=== PATIENT | male | born 1985 | race Caucasian/White ===

== ENCOUNTER 2016-08-28 15:51 | Emergency (ER) | payer OTHER ==
--- NOTE | 2016-08-28 16:15 | ED NURSING NOTES ---
Clinical Report - Nurses [facility] [place] [address] 08/28/2016 15:53 Patient: YULIANA DEL RIO TRIAGE Triage time 16:00. Acuity: LEVEL 4. Chief Complaint: LEFT EAR PAIN and (left ear stinging). Alert. --16:08 Shaneka Hopkins R.N. 16:00 08/28/16. BP: 126/91. HR: 62. RR: 18. O2 saturation: 100%. Temp: 97.4 F. Pain level now: 12/30. --16:08 Shaneka Hopkins R.N. Weight: 74.8 kg measured. Height/Length: 65 inches Per Patient. BMI: 27.5. --16:03 Shaneka Hopkins R.N. Medications None. --16:02 Shaneka Hopkins R.N. Allergies No Known Drug Allergy. --16:02 Shaneka Hopkins R.N. History Arrived by private vehicle. Historian: patient. Accompanied by family. Primary physician (none, has been to [facility], has appointment Tuesday). Onset. (2 days ago). PAST MEDICAL HX: Ear infection. Immunizations: up-to-date. SOCIAL HX: Never smoker. Occasional alcohol use. No drug use. FALL RISK ASSESSMENT: Fall risk assessment completed. No fall risk identified. --16:08 Shaneka Hopkins R.N. PROBLEMS: no known problems. ADDITIONAL SURGERIES: no known surgeries. Interventions ID band on patient. To room. --16:08 Shaneka Hopkins R.N. PHYSICAL ASSESSMENT 16:08/28/16. GENERAL / NEURO / PSYCH: Alert. ( Pt talks slowly, slightly slurred, states his ear hurts after he put a q tip into it). --16:09 Shaneka Hopkins R.N. GENERAL / NEURO / PSYCH: Mood/affect abnormal (flat). --16:15 Hopkins, Shaneka, R.N. NURSING PROGRESS NOTES 16:09 08/28/16. Patient identifiers checked. Call light placed in reach. Bed placed in lowest position. Patient ready for evaluation- chart flagged. --16:09 Shaneka Hopkins R.N. DISPOSITION / DISCHARGE Departure time: 1617. Learning barriers note: Pt seems mildly delayed, parents unaware. Discharge instructions provided and reviewed with the patient and parent. Reviewed medication(s) information. Prescription(s) given to the parent. Reviewed referral to family practice for followup. Patient and parent verbalized understanding. Written instructions provided. The patient was discharged home. He left the Emergency Department ambulatory and via private vehicle. Family member driving. --16:19 Shaneka Hopkins R.N. Locked/Released at 08/28/2016 16:21 by Shaneka Hopkins R.N.
--- NOTE | 2016-08-28 16:15 | ED NURSING NOTES ---
Clinical Report - Nurses [facility] [place] [address] 08/28/2016 15:53 Patient: YULIANA DEL RIO TRIAGE Triage time 16:00. Acuity: LEVEL 4. Chief Complaint: LEFT EAR PAIN and (left ear stinging). Alert. --16:08 Shaneka Hopkins R.N. 16:00 08/28/16. BP: 126/91. HR: 62. RR: 18. O2 saturation: 100%. Temp: 97.4 F. Pain level now: 12/30. --16:08 Shaneka Hopkins R.N. Weight: 74.8 kg measured. Height/Length: 65 inches Per Patient. BMI: 27.5. --16:03 Shaneka Hopkins R.N. Medications None. --16:02 Shaneka Hopkins R.N. Allergies No Known Drug Allergy. --16:02 Shaneka Hopkins R.N. History Arrived by private vehicle. Historian: patient. Accompanied by family. Primary physician (none, has been to [facility], has appointment Tuesday). Onset. (2 days ago). PAST MEDICAL HX: Ear infection. Immunizations: up-to-date. SOCIAL HX: Never smoker. Occasional alcohol use. No drug use. FALL RISK ASSESSMENT: Fall risk assessment completed. No fall risk identified. --16:08 Shaneka Hopkins R.N. PROBLEMS: no known problems. ADDITIONAL SURGERIES: no known surgeries. Interventions ID band on patient. To room. --16:08 Shaneka Hopkins R.N. PHYSICAL ASSESSMENT 16:08/28/16. GENERAL / NEURO / PSYCH: Alert. ( Pt talks slowly, slightly slurred, states his ear hurts after he put a q tip into it). --16:09 Shaneka Hopkins R.N. GENERAL / NEURO / PSYCH: Mood/affect abnormal (flat). --16:15 Hopkins, Shaneka, R.N. NURSING PROGRESS NOTES 16:09 08/28/16. Patient identifiers checked. Call light placed in reach. Bed placed in lowest position. Patient ready for evaluation- chart flagged. --16:09 Shaneka Hopkins R.N. DISPOSITION / DISCHARGE Departure time: 1617. Learning barriers note: Pt seems mildly delayed, parents unaware. Discharge instructions provided and reviewed with the patient and parent. Reviewed medication(s) information. Prescription(s) given to the parent. Reviewed referral to family practice for followup. Patient and parent verbalized understanding. Written instructions provided. The patient was discharged home. He left the Emergency Department ambulatory and via private vehicle. Family member driving. --16:19 Shaneka Hopkins R.N. Locked/Released at 08/28/2016 16:21 by Shaneka Hopkins R.N.
--- NOTE | 2016-08-28 16:15 | ED CLINICAL REPORT ---
Clinical Report - Physicians/Mid Levels [facility] [address] [place] [address] 08/28/2016 15:53 Patient: YULIANA DEL RIO Time Seen: 16:19 Aug 28 2016. Arrived- By private vehicle. Historian- patient. HISTORY OF PRESENT ILLNESS Chief Complaint: EARACHE. This started 2 days [employer] and is still present. Location- left ear. The pain is described as mild. The patient has had ear pain. No nasal discharge or congestion, sinus pressure, complaint of foreign body in the ear or ear trauma. No recent barotrauma, sore throat, toothache or jaw pain. (Has been placing a Q-tip into the ear. Denies any bleeding or drainage. Denies any increase in a headache. History recurring ear infections as a child.). REVIEW OF SYSTEMS No fever, cough, difficulty breathing, headache or diarrhea. No abdominal pain. All systems otherwise negative, except as recorded above. PAST HISTORY family report he has finished high school, and is progressing. Problems: Ear Infection. Additional Surgeries: no known surgeries. Medications: None. Allergies: No Known Drug Allergy. SOCIAL HISTORY Never smoker. Alcohol use; consumes beer occasionally. No drug use. ADDITIONAL NOTES The nursing notes have been reviewed. PHYSICAL EXAM Vital Signs: 08/28/2016 16:00 BP: 126/91. HR: 62. RR: 18. O2 saturation: 100%. Temp: 97.4 F. Pain level now: 8/10. Appearance: Alert. (patient is slow to respond, flat affect). Ear (left): There is erythema and bulging of the tympanic membrane and loss of tympanic membrane landmarks. No pain with movement of the auricle, lymphadenopathy, erythema of the external canal, swelling of the external canal or material in the external canal. No perforation of the tympanic membrane. Insufflation normal. Normal mastoid. Throat: Pharynx normal. No mouth ulcerations or tonsillar exudate. Nose: Nose normal. No tenderness to palpation/percussion over the sinuses. Ear (right): Right ear normal. Right tympanic membrane normal. Neck: Normal inspection. No meningeal signs or lymphadenopathy. CVS: Normal heart rate and rhythm. Heart sounds normal. Normal rhythm. Respiratory: No respiratory distress. Breath sounds normal. Back: Normal inspection. Skin: Skin warm. Normal skin color. Neuro: Oriented X 3. PROGRESS AND PROCEDURES Course of Care: Patient with uvula midline, no TM erythema on the rise, signs of TM erythema on the left with out any signs of canal swelling. No mastoid tenderness. Patient very stable. Lungs clear. Patient may be mildly developmentally delayed, answering questions appropriately, however is slow and such in nature, family deny any formal diagnosis. Patient is stable. The patient's symptoms are unchanged. Patient/family counseled. Disposition: Discharged. CLINICAL IMPRESSION Acute left otitis media. INSTRUCTIONS Drink plenty of fluids. Prescription Medications: Amoxicillin 500 mg tablets: take 1 orally every 8 hours for 10 days. No refills. OTC Medications: Motrin IB 200 mg (available over the counter): take 2 orally every 6 hours for 3 days, as needed for pain Follow-up: Follow up with your doctor tomorrow as needed. (Electronically signed by Jelena Cox P.A.-C 08/28/2016 16:25)
--- NOTE | 2016-08-28 16:15 | ED CLINICAL REPORT ---
Clinical Report - Physicians/Mid Levels [facility] [address] [place] [address] 08/28/2016 15:53 Patient: YULIANA DEL RIO Time Seen: 16:19 Aug 28 2016. Arrived- By private vehicle. Historian- patient. HISTORY OF PRESENT ILLNESS Chief Complaint: EARACHE. 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 Location- left ear. The pain is described as mild. The patient has had ear pain. No nasal discharge or congestion, sinus pressure, complaint of foreign body in the ear or ear trauma. No recent barotrauma, sore throat, toothache or jaw pain. (Has been placing a Q-tip into the ear. Denies any bleeding or drainage. Denies any increase in a headache. History recurring ear infections as a child.). REVIEW OF SYSTEMS No fever, cough, difficulty breathing, headache or diarrhea. No abdominal pain. All systems otherwise negative, except as recorded above. PAST HISTORY family report he has finished high school, and is progressing. Problems: Ear Infection. Additional Surgeries: no known surgeries. Medications: None. Allergies: No Known Drug Allergy. SOCIAL HISTORY Never smoker. Alcohol use; consumes beer occasionally. No drug use. ADDITIONAL NOTES The nursing notes have been reviewed. PHYSICAL EXAM Vital Signs: 08/28/2016 16:00 BP: 126/91. HR: 62. RR: 18. O2 saturation: 100%. Temp: 97.4 F. Pain level now: 8/10. Appearance: Alert. (patient is slow to respond, flat affect). Ear (left): There is erythema and bulging of the tympanic membrane and loss of tympanic membrane landmarks. No pain with movement of the auricle, lymphadenopathy, erythema of the external canal, swelling of the external canal or material in the external canal. No perforation of the tympanic membrane. Insufflation normal. Normal mastoid. Throat: Pharynx normal. No mouth ulcerations or tonsillar exudate. Nose: Nose normal. No tenderness to palpation/percussion over the sinuses. Ear (right): Right ear normal. Right tympanic membrane normal. Neck: Normal inspection. No meningeal signs or lymphadenopathy. CVS: Normal heart rate and rhythm. Heart sounds normal. Normal rhythm. Respiratory: No respiratory distress. Breath sounds normal. Back: Normal inspection. Skin: Skin warm. Normal skin color. Neuro: Oriented X 3. PROGRESS AND PROCEDURES Course of Care: Patient with uvula midline, no TM erythema on the rise, signs of TM erythema on the left with out any signs of canal swelling. No mastoid tenderness. Patient very stable. Lungs clear. Patient may be mildly developmentally delayed, answering questions appropriately, however is slow and such in nature, family deny any formal diagnosis. Patient is stable. The patient's symptoms are unchanged. Patient/family counseled. Disposition: Discharged. CLINICAL IMPRESSION Acute left otitis media. INSTRUCTIONS Drink plenty of fluids. Prescription Medications: Amoxicillin 500 mg tablets: take 1 orally every 8 hours for 10 days. No refills. OTC Medications: Motrin IB 200 mg (available over the counter): take 2 orally every 6 hours for 3 days, as needed for pain Follow-up: Follow up with your doctor tomorrow as needed. (Electronically signed by Jelena Cox P.A.-C 08/28/2016 16:25)
--- NOTE | 2016-08-28 16:25 | ED MAR SUMMARY ---
..... Medication Administration Record [facility] [address] [place], [place] [id number] Patient: YULIANA DEL RIO Visit ID: [id number] 31y, M Weight: 74.8 kg Height/Length: 65 in BMI: 27.5 ALLERGIES: No Known Drug Allergy
--- NOTE | 2016-08-28 16:25 | ED MAR SUMMARY ---
..... Medication Administration Record [facility] [address], [place] [id number] Patient: YULIANA DEL RIO Visit ID: [id number] 31y, M Weight: 74.8 kg Height/Length: 65 in BMI: 27.5 ALLERGIES: No Known Drug Allergy
--- NOTE | 2016-08-28 16:25 | ED DISCHARGE INSTRUCTIONS ---
Patient: YULIANA DEL RIO General Instructions [facility] VisitID: [id number] [place] [address] 31y, M Registration Date/Time: 08/28/2016 Acute left otitis media. INSTRUCTIONS Drink plenty of fluids. Prescription Medications: Amoxicillin 500 mg tablets: take 1 orally every 8 hours for 10 days. No refills. OTC Medications: Motrin IB 200 mg (available over the counter): take 2 orally every 6 hours for 3 days, as needed for pain Follow-up: Follow up with your doctor tomorrow as needed. ADDITIONAL INFORMATION Middle Ear Infection (Adult) You have an infection of the middle ear (the space behind the eardrum). It can occur as a result of the common cold. This is because congestion can block the internal passage (eustachian tube) that drains fluid from the middle ear. When the middle ear fills with fluid, bacteria can grow there and cause an infection. Oral antibiotics are used to treat this illness, not ear drops. Symptoms usually start to improve within 1-2 days of treatment. Home Care: Finish all of the antibiotic medicine prescribed, even though you may feel better after the first few days. You may use acetaminophen (Tylenol) or ibuprofen (Motrin, Advil) to control pain, unless something else was prescribed. [NOTE: If you have chronic liver or kidney disease or have ever had a stomach ulcer or GI bleeding, talk with your doctor before using these medicines.] (Do not give aspirin to anyone under 18 years of age who is ill with a fever. It may cause severe liver damage.) Follow Up with your doctor or this facility in two weeks if all symptoms have not cleared, or if hearing does not return to normal within one month. Get Prompt Medical Attention if any of the following occur: Ear pain gets worse or does not improve after three days of treatment Unusual drowsiness or confusion Neck pain, stiff neck or headache Fluid or blood draining from the ear canal Fever of 100.4F (38C) or higher after 3 days of antibiotics, or as directed by your healthcare provider Convulsion (seizure) Amoxicillin Trihydrate Oral tablet What is this medicine? AMOXICILLIN (a mox i TAMARA in) is a penicillin antibiotic. It is used to treat certain kinds of bacterial infections. It will not work for colds, flu, or other viral infections. How should I use this medicine? Take this medicine by mouth with a glass of water. Follow the directions on your prescription label. You may take this medicine with food or on an empty stomach. Take your medicine at regular intervals. Do not take your medicine more often than directed. Take all of your medicine as directed even if you think your are better. Do not skip doses or stop your medicine early. Talk to your metal cabinet finisher regarding the use of this medicine in children. While this drug may be prescribed for selected conditions, precautions do apply. What side effects may I notice from receiving this medicine? Side effects that you should report to your doctor or health vocational childcare teacher as soon as possible: allergic reactions like skin rash, itching or hives, swelling of the face, lips, or tongue breathing problems dark urine redness, blistering, peeling or loosening of the skin, including inside the mouth seizures severe or watery diarrhea trouble passing urine or change in the amount of urine unusual bleeding or bruising unusually weak or tired yellowing of the eyes or skin Side effects that usually do not require medical attention (report to your doctor or health vocational childcare teacher if they continue or are bothersome): dizziness headache stomach upset trouble sleeping What may interact with this medicine? amiloride control pills chloramphenicol macrolides probenecid sulfonamides tetracyclines What if I miss a dose? If you miss a dose, take it as soon as you can. If it is almost time for your next dose, take only that dose. Do not take double or extra doses. Where should I keep my medicine? Keep out of the reach of children. Store between 68 and 77 degrees F (20 and 25 degrees C). Keep bottle closed tightly. Throw away any unused medicine after the expiration date. What should I tell my health care provider before I take this medicine? They need to know if you have any of these conditions: asthma kidney disease an unusual or allergic reaction to amoxicillin, other penicillins, cephalosporin antibiotics, other medicines, foods, dyes, or preservatives or trying to get breast-feeding What should I watch for while using this medicine? Tell your doctor or health vocational childcare teacher if your symptoms do not improve in 2 or 3 days. Take all of the doses of your medicine as directed. Do not skip doses or stop your medicine early. If you are diabetic, you may get a false positive result for sugar in your urine with certain brands of urine tests. Check with your doctor. Do not treat diarrhea with [id number] products. Contact your doctor if you have diarrhea that lasts more than 2 days or if the diarrhea is severe and watery. Ibuprofen Oral tablet What is this medicine? IBUPROFEN (eye BYOO proe fen) is a non-steroidal anti-inflammatory drug (NSAID). It is used for dental pain, fever, headaches or migraines, osteoarthritis, rheumatoid arthritis, or painful monthly periods. It can also relieve minor aches and pains caused by a cold, flu, or sore throat. How should I use this medicine? Take this medicine by mouth with a glass of water. Follow the directions on the prescription label. Take this medicine with food if your stomach gets upset. Try to not lie down for at least 10 minutes after you take the medicine. Take your medicine at regular intervals. Do not take your medicine more often than directed. A special MedGuide will be given to you by the pharmacist with each prescription and refill. Be sure to read this information carefully each time. Talk to your metal cabinet finisher regarding the use of this medicine in children. Special care may be needed. What side effects may I notice from receiving this medicine? Side effects that you should report to your doctor or health vocational childcare teacher as soon as possible: allergic reactions like skin rash, itching or hives, swelling of the face, lips, or tongue black or bloody stools, blood in the urine or in vomit breathing problems changes in vision chest pain general ill feeling or flu-like symptoms nausea or vomiting redness, blistering, peeling or loosening of the skin, including inside the mouth slurred speech or weakness on one side of the body stomach pain unexplained weight gain or swelling unusually weak or tired yellowing of eyes or skin Side effects that usually do not require medical attention (report to your doctor or health vocational childcare teacher if they continue or are bothersome): constipation or diarrhea dizziness gas or heartburn stomach upset What may interact with this medicine? Do not take this medicine with any of the following medications: cidofovir ketorolac methotrexate pemetrexed This medicine may also interact with the following medications: alcohol aspirin diuretics lithium other drugs for inflammation like prednisone warfarin What if I miss a dose? If you miss a dose, take it as soon as you can. If it is almost time for your next dose, take only that dose. Do not take double or extra doses. Where should I keep my medicine? Keep out of the reach of children. Store at room temperature between 15 and 30 degrees C (59 and 86 degrees F). Keep container tightly closed. Throw away any unused medicine after the expiration date. What should I tell my health care provider before I take this medicine? They need to know if you have any of these conditions: asthma cigarette smoker drink more than 3 alcohol containing drinks a day heart disease or circulation problems such as heart failure or leg edema (fluid retention) high blood pressure kidney disease liver disease stomach bleeding or ulcers an unusual or allergic reaction to ibuprofen, aspirin, other NSAIDS, other medicines, foods, dyes, or preservatives or trying to get breast-feeding What should I watch for while using this medicine? Tell your doctor or healthcare professional if your symptoms do not start to get better or if they get worse. This medicine does not prevent heart attack or stroke. In fact, this medicine may increase the chance of a heart attack or stroke. The chance may increase with longer use of this medicine and in people who have heart disease. If you take aspirin to prevent heart attack or stroke, talk with your doctor or health vocational childcare teacher. Do not take other medicines that contain aspirin, ibuprofen, or naproxen with this medicine. Side effects such as stomach upset, nausea, or ulcers may be more likely to occur. Many medicines available without a prescription should not be taken with this medicine. This medicine can cause ulcers and bleeding in the stomach and intestines at any time during treatment. Ulcers and bleeding can happen without warning symptoms and can cause . To reduce your risk, do not smoke cigarettes or drink alcohol while you are taking this medicine. You may get drowsy or dizzy. Do not drive, use machinery, or do anything that needs mental alertness until you know how this medicine affects you. Do not stand or sit up quickly, especially if you are an older patient. This reduces the risk of dizzy or fainting spells. This medicine can cause you to bleed more easily. Try to avoid damage to your teeth and gums when you brush or floss your teeth. You have been given the following additional information: Otitis Media, Abx Tx (Adult) Amoxicillin Trihydrate Oral tablet Ibuprofen Oral tablet (Electronically signed by KoroleJelena london P.A.-C 08/28/2016 16:25)
--- NOTE | 2016-08-28 16:25 | ED DISCHARGE INSTRUCTIONS ---
Patient: YULIANA DEL RIO General Instructions [facility] VisitID: [id number] [place] [address] 31y, M Registration Date/Time: 08/28/2016 Acute left otitis media. INSTRUCTIONS Drink plenty of fluids. Prescription Medications: Amoxicillin 500 mg tablets: take 1 orally every 8 hours for 10 days. No refills. OTC Medications: Motrin IB 200 mg (available over the counter): take 2 orally every 6 hours for 3 days, as needed for pain Follow-up: Follow up with your doctor tomorrow as needed. ADDITIONAL INFORMATION Middle Ear Infection (Adult) You have an infection of the middle ear (the space behind the eardrum). It can occur as a result of the common cold. This is because congestion can block the internal passage (eustachian tube) that drains fluid from the middle ear. When the middle ear fills with fluid, bacteria can grow there and cause an infection. Oral antibiotics are used to treat this illness, not ear drops. Symptoms usually start to improve within 1-2 days of treatment. Home Care: Finish all of the antibiotic medicine prescribed, even though you may feel better after the first few days. You may use acetaminophen (Tylenol) or ibuprofen (Motrin, Advil) to control pain, unless something else was prescribed. [NOTE: If you have chronic liver or kidney disease or have ever had a stomach ulcer or GI bleeding, talk with your doctor before using these medicines.] (Do not give aspirin to anyone under 18 years of age who is ill with a fever. It may cause severe liver damage.) Follow Up with your doctor or this facility in two weeks if all symptoms have not cleared, or if hearing does not return to normal within one month. Get Prompt Medical Attention if any of the following occur: Ear pain gets worse or does not improve after three days of treatment Unusual drowsiness or confusion Neck pain, stiff neck or headache Fluid or blood draining from the ear canal Fever of 100.4F (38C) or higher after 3 days of antibiotics, or as directed by your healthcare provider Convulsion (seizure) Amoxicillin Trihydrate Oral tablet What is this medicine? AMOXICILLIN (a mox i TAMARA in) is a penicillin antibiotic. It is used to treat certain kinds of bacterial infections. It will not work for colds, flu, or other viral infections. How should I use this medicine? Take this medicine by mouth with a glass of water. Follow the directions on your prescription label. You may take this medicine with food or on an empty stomach. Take your medicine at regular intervals. Do not take your medicine more often than directed. Take all of your medicine as directed even if you think your are better. Do not skip doses or stop your medicine early. Talk to your nematology teacher regarding the use of this medicine in children. While this drug may be prescribed for selected conditions, precautions do apply. What side effects may I notice from receiving this medicine? Side effects that you should report to your doctor or health home care scheduler as soon as possible: allergic reactions like skin rash, itching or hives, swelling of the face, lips, or tongue breathing problems dark urine redness, blistering, peeling or loosening of the skin, including inside the mouth seizures severe or watery diarrhea trouble passing urine or change in the amount of urine unusual bleeding or bruising unusually weak or tired yellowing of the eyes or skin Side effects that usually do not require medical attention (report to your doctor or health home care scheduler if they continue or are bothersome): dizziness headache stomach upset trouble sleeping What may interact with this medicine? amiloride control pills chloramphenicol macrolides probenecid sulfonamides tetracyclines What if I miss a dose? If you miss a dose, take it as soon as you can. If it is almost time for your next dose, take only that dose. Do not take double or extra doses. Where should I keep my medicine? Keep out of the reach of children. Store between 68 and 77 degrees F (20 and 25 degrees C). Keep bottle closed tightly. Throw away any unused medicine after the expiration date. What should I tell my health care provider before I take this medicine? They need to know if you have any of these conditions: asthma kidney disease an unusual or allergic reaction to amoxicillin, other penicillins, cephalosporin antibiotics, other medicines, foods, dyes, or preservatives or trying to get breast-feeding What should I watch for while using this medicine? Tell your doctor or health home care scheduler if your symptoms do not improve in 2 or 3 days. Take all of the doses of your medicine as directed. Do not skip doses or stop your medicine early. If you are diabetic, you may get a false positive result for sugar in your urine with certain brands of urine tests. Check with your doctor. Do not treat diarrhea with [id number] products. Contact your doctor if you have diarrhea that lasts more than 2 days or if the diarrhea is severe and watery. Ibuprofen Oral tablet What is this medicine? IBUPROFEN (eye BYOO proe fen) is a non-steroidal anti-inflammatory drug (NSAID). It is used for dental pain, fever, headaches or migraines, osteoarthritis, rheumatoid arthritis, or painful monthly periods. It can also relieve minor aches and pains caused by a cold, flu, or sore throat. How should I use this medicine? Take this medicine by mouth with a glass of water. Follow the directions on the prescription label. Take this medicine with food if your stomach gets upset. Try to not lie down for at least 10 minutes after you take the medicine. Take your medicine at regular intervals. Do not take your medicine more often than directed. A special MedGuide will be given to you by the pharmacist with each prescription and refill. Be sure to read this information carefully each time. Talk to your nematology teacher regarding the use of this medicine in children. Special care may be needed. What side effects may I notice from receiving this medicine? Side effects that you should report to your doctor or health home care scheduler as soon as possible: allergic reactions like skin rash, itching or hives, swelling of the face, lips, or tongue black or bloody stools, blood in the urine or in vomit breathing problems changes in vision chest pain general ill feeling or flu-like symptoms nausea or vomiting redness, blistering, peeling or loosening of the skin, including inside the mouth slurred speech or weakness on one side of the body stomach pain unexplained weight gain or swelling unusually weak or tired yellowing of eyes or skin Side effects that usually do not require medical attention (report to your doctor or health home care scheduler if they continue or are bothersome): constipation or diarrhea dizziness gas or heartburn stomach upset What may interact with this medicine? Do not take this medicine with any of the following medications: cidofovir ketorolac methotrexate pemetrexed This medicine may also interact with the following medications: alcohol aspirin diuretics lithium other drugs for inflammation like prednisone warfarin What if I miss a dose? If you miss a dose, take it as soon as you can. If it is almost time for your next dose, take only that dose. Do not take double or extra doses. Where should I keep my medicine? Keep out of the reach of children. Store at room temperature between 15 and 30 degrees C (59 and 86 degrees F). Keep container tightly closed. Throw away any unused medicine after the expiration date. What should I tell my health care provider before I take this medicine? They need to know if you have any of these conditions: asthma cigarette smoker drink more than 3 alcohol containing drinks a day heart disease or circulation problems such as heart failure or leg edema (fluid retention) high blood pressure kidney disease liver disease stomach bleeding or ulcers an unusual or allergic reaction to ibuprofen, aspirin, other NSAIDS, other medicines, foods, dyes, or preservatives or trying to get breast-feeding What should I watch for while using this medicine? Tell your doctor or healthcare professional if your symptoms do not start to get better or if they get worse. This medicine does not prevent heart attack or stroke. In fact, this medicine may increase the chance of a heart attack or stroke. The chance may increase with longer use of this medicine and in people who have heart disease. If you take aspirin to prevent heart attack or stroke, talk with your doctor or health home care scheduler. Do not take other medicines that contain aspirin, ibuprofen, or naproxen with this medicine. Side effects such as stomach upset, nausea, or ulcers may be more likely to occur. Many medicines available without a prescription should not be taken with this medicine. This medicine can cause ulcers and bleeding in the stomach and intestines at any time during treatment. Ulcers and bleeding can happen without warning symptoms and can cause . To reduce your risk, do not smoke cigarettes or drink alcohol while you are taking this medicine. You may get drowsy or dizzy. Do not drive, use machinery, or do anything that needs mental alertness until you know how this medicine affects you. Do not stand or sit up quickly, especially if you are an older patient. This reduces the risk of dizzy or fainting spells. This medicine can cause you to bleed more easily. Try to avoid damage to your teeth and gums when you brush or floss your teeth. You have been given the following additional information: Otitis Media, Abx Tx (Adult) Amoxicillin Trihydrate Oral tablet Ibuprofen Oral tablet (Electronically signed by KoroleJelena london P.A.-C 08/28/2016 16:25)
--- NOTE | 2016-08-28 16:25 | ED MED RECONCILIATION SUMMARY ---
Patient: YULIANA DEL RIO Medication Reconciliation Report [facility] VisitID: [id number] [address] [place] [address] 31y, M Registration Date/Time: 08/28/2016 Weight: 74.8 kg Height/Length: 65 in. BMI: 27.5 ALLERGIES: No Known Drug Allergy The patient's Home Medications are listed below: NONE. The source(s) of the original Home Medication information: Not obtained. The following Medications were given to the patient in the Emergency Department: None. The following Medications were prescribed to the patient: Motrin IB 200 mg (available over the counter): take 2 orally every 6 hours for 3 days, as needed for pain -- Jelena Cox, P.A.-C Amoxicillin 500 mg tablets: take 1 orally every 8 hours for 10 days. No refills. -- Jelena Cox, P.A.-C
--- NOTE | 2016-08-28 16:25 | ED MED RECONCILIATION SUMMARY ---
Patient: YULIANA DEL RIO Medication Reconciliation Report [facility] VisitID: [id number] [address] [place] [address] 31y, M Registration Date/Time: 08/28/2016 Weight: 74.8 kg Height/Length: 65 in. BMI: 27.5 ALLERGIES: No Known Drug Allergy The patient's Home Medications are listed below: NONE. The source(s) of the original Home Medication information: Not obtained. The following Medications were given to the patient in the Emergency Department: None. The following Medications were prescribed to the patient: Motrin IB 200 mg (available over the counter): take 2 orally every 6 hours for 3 days, as needed for pain -- Jelena Cox, P.A.-C Amoxicillin 500 mg tablets: take 1 orally every 8 hours for 10 days. No refills. -- Jelena Cox, P.A.-C
== END 2016-08-28 16:17 | disposition home or self-care (01) ==
LOC: ED SRH 15:51
DX: H66.92 Otitis media, unspecified, left ear (principal)